=== PATIENT | male | born 1945 | race Caucasian/White ===

== ENCOUNTER 2018-06-14 07:29 | Inpatient (IN) | payer MEDICARE ==
[~2018-06-14] VITALS: Ht 185.4 cm; Wt 86.6 kg
--- NOTE | ~2018-06-14 | OP ---
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 BLOOD LOSS: Minimal. ANESTHESIA: General. DRAINS: None. ROUTE AIDE: Kayla Lee APRN DESCRIPTION OF PROCEDURE: The patient was conveyed to the operating room electively on 06/14/2018. General anesthesia was induced by the anesthesia staff. The abdomen was sterilely prepped and draped. A small skin laura was accomplished on the left upper quadrant. A Veress needle was inserted through the skin laura into the peritoneal cavity. CO2 insufflation was begun. Once a sufficient pneumoperitoneum had been achieved, a 5-mm trocar was inserted through an incision in the epigastrium. Another 5-mm trocar was inserted through an incision in the umbilicus. Another 5-mm trocar was inserted through an incision far laterally in the right upper quadrant. During insertion of the Veress needle and all trocars, there appeared to have been no injury to the bowels, any intraperitoneal or retroperitoneal structures. An abdominal survey was undertaken. The tattooed area was not easily identifiable initially. I incised along the right white line of Toldt. I utilized the laparoscopic EnSeal device for this. I then took down the retroperitoneal attachments to the hepatic flexure and I divided some of the omentum off of the transverse colon. I chose an area for the position of my GelPort. A transverse incision was accomplished in the right upper quadrant. Sharp dissection was carried down through skin and subcutaneous tissues. The external oblique aponeurosis was then opened along the direction of its fibers. The internal oblique muscle was opened along the direction of its fibers and then I divided the transversus abdominis muscle layer. I entered the peritoneal cavity sharply. An Paul retractor was placed. A GelPort was placed on top of the Paul retractor. Utilizing hand-assisted approach, I was able to mobilize more of the hepatic flexure. I then took off the port device. I exteriorized the right colon as well as the transverse colon. I was able to take the greater omentum off of the transverse colon again utilizing the laparoscopic EnSeal device. I identified the area in question. It was marked with a suture. Tattoos were easily identifiable. I chose an area for my distal extent of resection to be at least 2 inches from the mass. I stapled across the colon here with a BENIGNO-75 stapler. I took down the fold of Treves with the laparoscopic EnSeal device. I then chose my proximal extent of the resection to be the very distal ileum. I stapled across the ileum here with a BENIGNO-75 stapler. The interpose mesentery was taken down OPERATIVE REPORT [id number] NIKKI MCKINLEY with the laparoscopic EnSeal device. I ensured that the ureter was protected during this procedure by sweeping it down as well as sweeping down the duodenum. Both of these structures were protected and undamaged during the operative procedure. The larger vessels were ligated with #1 Vicryls. I then completed my mesenteric dissection. I placed the colon on the back table. I then brought the ileum and the colon into apposition side by side. They are kept in place with some 3-0 Vicryls. A small enterotomy and small colotomy were accomplished. Anvils of the BENIGNO-75 stapler were advanced and fired. The resulting enterocolonic defect was closed with a single firing of TA-60 stapler. I then draped some omentum over the anastomosis and sutured it over the anastomosis with some 3-0 Vicryls. I ensured the small bowel was not twisted on its mesentery. I irrigated the right upper quadrant. I examined the liver. I identified no definite evidence of a liver metastasis. I irrigated. There was no bleeding. I closed the internal oblique and transverse abdominis muscles with a running #1 Vicryl. I then closed the external oblique muscle with a running #1 Vicryl. The subcutaneous tissues were closed with interrupted 3-0 Vicryls. The skin in the right upper quadrant was closed with a running intracuticular 3-0 Vicryl. Skin at the umbilicus was closed with interrupted 4-0 Vicryl Rapide sutures. Benzoin and Steri-Strips were applied. The patient was then extubated and conveyed to the post-anesthesia care unit where he was in stable condition. TRANSINT:[id number] Voice Confirmation ID: [id number] DOCUMENT ID: [id number] GUNNER KAUFFMAN MD at 1717 CC: ROSELYN MENENDEZ DO, DOMINIK CHAPA MD, JANEY BOWMAN and [id number] DICTATION DATE: 06/14/18 1621 DUAL RATE DEALER: 06/14/18 1718 ADM IN [facility] [address] [id number]
--- NOTE | ~2018-06-14 | EC ---
PATIENT:NIKKI MCKINLEY DATE OF SERVICE: 06/14/18 SEX: M MEDICAL RECORD: [id number] DATE OF : [birth year] LOCATION:D.[facility] AGE OF PATIENT: 73 ADMISSION DATE: 06/14/18 REFERRING PHYSICIAN: INTERPRETING PHYSICIAN: ERIC RAE MD ECHOCARDIOGRAM REPORT ECHO CHARGES 4 ECHO COMPLETE Date: 06/21 CLINICAL DIAGNOSIS: PE ECHOCARDIOGRAPHIC MEASUREMENTS (adult normal given) AC root (d.<3.7cm) 2.9 cm LV Septum d (<1.2 cm> 1.7 cm Valve Excursion 1.5 cm LV Septum (systole) 2.1 cm Left Atria (s.<4.0cm> 3.3 cm LVPW d(<1.2cm) 1.0 cm RV (d.<2.3cm) 3.9 cm LVPW (sytole) 1.1 cm LV diastole(<5.6CM) 3.9 cm MV E-F(>70mm/sec) cm LV systole 3.0 cm LVOT Diameter 2.3 cm MV exc.(>10mm) cm Est.ejection fraction (50-75%) % DOPPLER: LVIT cm/sec A 90 cm/sec E 56 cm/sec LA cm/sec RVSP 19.4 mmHg LVOT cm/sec AOP1/2T m/s Asc. Ao 108 cm/sec RVOT 71 cm/sec RA cm/sec PA 71 cm/sec AV Gradient Peak 4.6 mmHg AV Mean 2.8 mmHg AV Area cm MV Gradient Peak 4.0 mmHg MV Mean 1.3 mmHg MV Area cm COMMENTS: Digital Advisor: Jonny COCHRAN Farmer Vegetable: Twyla Morales TAPE# PACS Pericardial Effusion N DATE OF SERVICE: 06/22/2018 DATE OF SERVICE: 06/22/2018 PROCEDURE: Echocardiogram. FINDINGS: 1. Left ventricular chamber size is within normal limits. Left ventricular systolic function is normal. Overall ejection fraction is estimated at 55%. 2. Left atrium, right atrium, right ventricle chamber size is within normal ECHOCARDIOGRAM REPORT [id number] NIKKI MCKINLEY limits. 3. Valvular structures have normal structure and motion. 4. Doppler interrogation only reveals trace tricuspid regurgitation. No other valvular insufficiency or stenosis, and pulmonary systolic pressure is normal estimated at 20 mmHg. 5. No evidence of pericardial effusion or left ventricular thrombus. TRANSINT:[id number] Voice Confirmation ID: [id number] DOCUMENT ID: [id number] ERIC RAE MD at 1713 CC: [id number] DICTATION DATE: 06/22/18 1243 GRAPHIC DESIGN PROFESSOR: 06/22/18 1254 DIS IN 06/27/18 [id number] [place] [id number]
--- NOTE | ~2018-06-14 | MORECARE ---
CASE MANAGEMENT DISCHARGE SUMMARY PATIENT: NIKKI MCKINLEY UNIT: [id number] ADM DATE: 06/14/18 AGE: 73 : [birth year] SEX: M ROOM/BED: D.2222 AUTHOR: CASE, LIFESTYLE COORDINATOR PHYSICIAN: REFERRING PHYSICIAN: GUNNER KAUFFMAN MD DATE OF SERVICE: 06/14/18 Discharge Plan Patient Name: NIKKI MCKINLEY Facility: [facility]:[place] : 1945 Planned Disposition: Anticipated Discharge Date: Discharge Date: Expected LOS: Initial Reviewer: [email or web address] Initial Review Date: 06/25/2018 Generated: 06/25/18 11:50 am DCPIA - Discharge Planning Initial Assessment Updated by [email or web address]: Maria Teresa Hernandez on 06/25/18 10:43 am * Is the patient Alert and Oriented? No * How many steps to enterexit or inside your home? * PCP Rashi * Preadmission Environment Home with Family * ADLs Independent * Equipment Grab Bars * List name and contact numbers for known caregivers / representatives who currently or will assist patient after discharge: Mami, daughter, Nilda, , * Community resources currently utilized None * Additional services required to return to the preadmission environment? Yes * Has this patient been hospitalized within the prior 30 days at any hospital? No Patient Name: NIKKI MCKINLEY Page [id number] All edits/amendments must be made on the electronic document DICTATION DATE: 06/25/18 1049 OVERAGE SHORTAGE AND DAMAGE CLERK: 06/25/18 1049 RPT#: [id number] DC DATE: STATUS: ADM IN [facility] [address] [place] [address] END OF REPORT
--- NOTE | ~2018-06-14 | DS ---
PATIENT:NIKKI MCKINLEY :47 MEDICAL RECORD: [id number] DISCHARGE SUMMARY ADMISSION DATE: 06/14/18 DISCHARGE DATE: 06/27/18 PRINCIPAL DIAGNOSES: 1. T3 N0 M0, stage II adenocarcinoma of the colon. 2. Moderately extensive and bilateral pulmonary thromboemboli. 3. Postoperative small bowel obstruction. 4. Acute blood loss anemia. OTHER DIAGNOSES: Include; 1. Bibasilar lower lobe atelectasis with small pleural effusions. 2. Acute malnutrition, requiring parenteral nutrition. 3. Debility. 4. Exploratory laparotomy, small bowel decompression with enterocolonic anastomosis. INITIAL PROCEDURE: Hand-assisted laparoscopic surgery - right hemicolectomy. HOSPITAL COURSE: The patient underwent the above operative procedure. Postoperatively, HE developed a small bowel obstruction due to twist in the bowel that was identified at the time of laparotomy. Prior to his laparotomy, the patient was found to have a small bowel obstruction, which resolved once the twist in the bowel was taken down and a new anastomosis formed. The patient's bowel function returned. His diet was advanced. He is being dismissed home on Eliquis due to the pulmonary thromboemboli, which he should stay on for a year as well as [place] and [place]. I will see him in my office in 2-3 weeks. TRANSINT:[id number] Voice Confirmation ID: [id number] DOCUMENT ID: [id number] GUNNER KAUFFMAN MD at 1023 CC: SUMANTH OCONNOR MD and GUNNER FELDER [id number] DICTATION DATE: 06/27/18 1331 METAL CASKET MAKER: 06/27/18 1716 DIS IN 06/27/18 [id number] [place] [address]
[~2018-06-14 07:29] MED LIST: NORVASC2.5 MG PO
[2018-06-14 08:02] LABS: BASOPHILS 0 % (0-2); EOSINOPHILS 0.3 % (0-7); HEMATOCRIT 40.8 % (42.0-54.0); HEMOGLOBIN 14.3 g/dL (13.5-17.5); IMMATURE GRANULOCYTES 0.3 % (0-5); MCH 30.4 pg (26.0-34.0); MCV 86.6 fL (80.0-100.0); MEAN PLATELET VOLUME 9.6 fL (7.4-10.4); MONOCYTES 11.3 % (2-11); NEUTROPHILS 63.1 % (40-80); PLATELET COUNT 144 10x3/uL (130-400); RBC 4.71 10x6/uL (4.20-6.10); WBC 6.6 10x3/uL (4.8-10.8)
[2018-06-14 08:15] LABS: APTT 30.1 SECONDS (22.8-39.4); INR 1.1 (0.85-1.17); PROTIME 13.8 SECONDS (11.6-15.0)
[2018-06-14 08:20] LABS: ANION GAP 9.4 mmol/L (8-16); CALCIUM 8.8 mg/dL (8.5-10.1); CARBON DIOXIDE 27.4 mmol/L (21.0-32.0); CREATININE - SERUM 1.1 mg/dL (0.6-1.3); POTASSIUM - SERUM 4.8 mmol/L (3.5-5.1)
[2018-06-14 08:56] VITALS: BP 140/80; BMI 25.2
[2018-06-14 15:59] VITALS: BP 135/61
[2018-06-14 19:55] VITALS: BMI 25.2
[2018-06-15 06:52] LABS: BASOPHILS 0 % (0-2); EOSINOPHILS 0 % (0-7); HEMATOCRIT 38.7 % (42.0-54.0); HEMOGLOBIN 12.9 g/dL (13.5-17.5); IMMATURE GRANULOCYTES 0.3 % (0-5); LYMPHOCYTES 9.4 % (15-50); MCH 29.5 pg (26.0-34.0); MCHC 33.3 g/dL (31.0-37.0); MCV 88.4 fL (80.0-100.0); MEAN PLATELET VOLUME 10.3 fL (7.4-10.4); NEUTROPHILS 81.3 % (40-80); PLATELET COUNT 125 10x3/uL (130-400); RBC 4.38 10x6/uL (4.20-6.10); RDW 13.4 % (11.5-14.5)
[2018-06-15 06:58] LABS: WBC 11.1 10x3/uL (4.8-10.8)
[2018-06-15 07:10] LABS: ALBUMIN 3.5 g/dL (3.4-5.0); ALKALINE PHOSPHATASE 48 U/L (46-116); ALT (SGPT) 26 U/L (10-68); BILIRUBIN - TOTAL 0.95 mg/dL (0.2-1.3); CALC OSMOLALITY 279 mosm/kg (275-300); CALCIUM 8.4 mg/dL (8.5-10.1); CARBON DIOXIDE 26.1 mmol/L (21.0-32.0); CHLORIDE - SERUM 105 mmol/L (98-107); GLUCOSE 108 mg/dL (74-106); MAGNESIUM - SERUM 2.2 mg/dL (1.8-2.4); PHOSPHOROUS 3.1 mg/dL (2.5-4.9); PROTEIN - SERUM 6.8 g/dL (6.4-8.2); SODIUM 139 mmol/L (136-145); UREA NITROGEN 14 mg/dL (7-18); eGFR NON AFRICAN AMERICAN 78 mL/min (90-120)
[2018-06-15 12:53] VITALS: BMI 25.2
[2018-06-16 08:57] VITALS: BP 126/75
[2018-06-16 13:15] VITALS: BP 152/70
[2018-06-16 15:04] VITALS: BMI 25.2
[2018-06-16 16:56] VITALS: BP 163/82
[2018-06-16 20:04] VITALS: BP 159/71
[2018-06-17 01:23] VITALS: BP 152/63
[2018-06-17 04:10] VITALS: BP 149/68
[2018-06-17 09:31] VITALS: BP 168/77
[2018-06-17 16:44] VITALS: BP 153/69
[2018-06-17 20:24] VITALS: BP 144/76
[2018-06-17 23:41] VITALS: BP 154/72
[2018-06-18 04:04] VITALS: BP 151/72
[2018-06-18 09:01] VITALS: BP 177/87
[2018-06-18 16:09] VITALS: BP 194/88
[2018-06-18 19:48] VITALS: BP 170/75
[2018-06-19 01:16] VITALS: BP 167/68
[2018-06-19 04:09] VITALS: BP 177/96
[2018-06-19 09:19] LABS: BASOPHILS 0.1 % (0-2); EOSINOPHILS 0.9 % (0-7); HEMATOCRIT 36.9 % (42.0-54.0); HEMOGLOBIN 12.7 g/dL (13.5-17.5); IMMATURE GRANULOCYTES 0.7 % (0-5); LYMPHOCYTES 10.2 % (15-50); MCH 29.8 pg (26.0-34.0); MCHC 34.4 g/dL (31.0-37.0); MCV 86.6 fL (80.0-100.0); MEAN PLATELET VOLUME 9.3 fL (7.4-10.4); NEUTROPHILS 75.1 % (40-80); PLATELET COUNT 147 10x3/uL (130-400); RBC 4.26 10x6/uL (4.20-6.10); RDW 13.2 % (11.5-14.5); WBC 8.4 10x3/uL (4.8-10.8)
[2018-06-19 09:32] LABS: ALBUMIN 2.8 g/dL (3.4-5.0); ALKALINE PHOSPHATASE 63 U/L (46-116); ALT (SGPT) 39 U/L (10-68); BILIRUBIN - TOTAL 1.21 mg/dL (0.2-1.3); CALC OSMOLALITY 271 mosm/kg (275-300); CALCIUM 8.3 mg/dL (8.5-10.1); CHLORIDE - SERUM 102 mmol/L (98-107); CREATININE - SERUM 0.8 mg/dL (0.6-1.3); GLUCOSE 112 mg/dL (74-106); POTASSIUM - SERUM 3.7 mmol/L (3.5-5.1); PROTEIN - SERUM 6.3 g/dL (6.4-8.2); SODIUM 135 mmol/L (136-145); UREA NITROGEN 14 mg/dL (7-18); eGFR NON AFRICAN AMERICAN > 90 mL/min (90-120)
[2018-06-19 11:53] VITALS: BP 148/73
[2018-06-19 16:25] VITALS: BP 109/77
[2018-06-19 20:22] VITALS: BP 155/69
[2018-06-20 04:38] VITALS: BP 171/80
[2018-06-20 09:37] VITALS: BP 133/77
[2018-06-20 17:37] VITALS: BP 154/72
[2018-06-20 19:33] VITALS: BP 123/66
[2018-06-20 23:43] VITALS: BP 112/70
[2018-06-21] VITALS (8 sets, daily range): BP systolic 117–156; BP diastolic 53–70; Ht 185.4 cm; Wt 86.6 kg
[2018-06-21 19:49] LABS: BASOPHILS 0.3 % (0-2); EOSINOPHILS 0.4 % (0-7); HEMATOCRIT 43.5 % (42.0-54.0); IMMATURE GRANULOCYTES 1.2 % (0-5); LYMPHOCYTES 10.3 % (15-50); MCH 29.9 pg (26.0-34.0); MCHC 34.5 g/dL (31.0-37.0); MCV 86.7 fL (80.0-100.0); MEAN PLATELET VOLUME 10.5 fL (7.4-10.4); MONOCYTES 10.2 % (2-11); NEUTROPHILS 77.6 % (40-80); PLATELET COUNT 175 10x3/uL (130-400); RBC 5.02 10x6/uL (4.20-6.10); RDW 13.4 % (11.5-14.5); WBC 10.3 10x3/uL (4.8-10.8)
[2018-06-22] VITALS (21 sets, daily range): BP systolic 110–132; BP diastolic 47–68
[2018-06-22 05:04] LABS: BASOPHILS 0.1 % (0-2); EOSINOPHILS 0 % (0-7); HEMATOCRIT 38.4 % (42.0-54.0); HEMOGLOBIN 13.1 g/dL (13.5-17.5); MCHC 34.1 g/dL (31.0-37.0); MCV 87.9 fL (80.0-100.0); MEAN PLATELET VOLUME 9.7 fL (7.4-10.4); MONOCYTES 7.8 % (2-11); NEUTROPHILS 83.1 % (40-80); PLATELET COUNT 201 10x3/uL (130-400); RBC 4.37 10x6/uL (4.20-6.10); RDW 13.4 % (11.5-14.5); WBC 10.9 10x3/uL (4.8-10.8)
[2018-06-22 05:52] LABS: ALBUMIN 2.2 g/dL (3.4-5.0); ALKALINE PHOSPHATASE 53 U/L (46-116); ALT (SGPT) 81 U/L (10-68); BILIRUBIN - TOTAL 0.51 mg/dL (0.2-1.3); CALC OSMOLALITY 274 mosm/kg (275-300); CALCIUM 7.7 mg/dL (8.5-10.1); CARBON DIOXIDE 30.3 mmol/L (21.0-32.0); CHLORIDE - SERUM 103 mmol/L (98-107); GLUCOSE 150 mg/dL (74-106); MAGNESIUM - SERUM 2.2 mg/dL (1.8-2.4); PHOSPHOROUS 3.5 mg/dL (2.5-4.9); POTASSIUM - SERUM 4.9 mmol/L (3.5-5.1); PROTEIN - SERUM 5.5 g/dL (6.4-8.2); SODIUM 135 mmol/L (136-145); UREA NITROGEN 18 mg/dL (7-18); eGFR NON AFRICAN AMERICAN 78 mL/min (90-120)
[2018-06-22 13:05] LABS: BASOPHILS 0.1 % (0-2); EOSINOPHILS 0.2 % (0-7); HEMATOCRIT 36.6 % (42.0-54.0); HEMOGLOBIN 12.3 g/dL (13.5-17.5); LYMPHOCYTES 9.7 % (15-50); MCH 29.6 pg (26.0-34.0); MCHC 33.6 g/dL (31.0-37.0); MEAN PLATELET VOLUME 9.9 fL (7.4-10.4); MONOCYTES 10.5 % (2-11); NEUTROPHILS 78.5 % (40-80); PLATELET COUNT 200 10x3/uL (130-400); RBC 4.16 10x6/uL (4.20-6.10); RDW 13.6 % (11.5-14.5); WBC 10.9 10x3/uL (4.8-10.8)
[2018-06-23] VITALS (9 sets, daily range): BP systolic 125–143; BP diastolic 55–71
[2018-06-23 04:31] LABS: BASOPHILS 0.2 % (0-2); EOSINOPHILS 2.5 % (0-7); HEMATOCRIT 34.2 % (42.0-54.0); HEMOGLOBIN 11.5 g/dL (13.5-17.5); MCH 29.6 pg (26.0-34.0); MCHC 33.6 g/dL (31.0-37.0); MCV 87.9 fL (80.0-100.0); MEAN PLATELET VOLUME 9.6 fL (7.4-10.4); MONOCYTES 11.9 % (2-11); NEUTROPHILS 73.4 % (40-80); PLATELET COUNT 200 10x3/uL (130-400); RBC 3.89 10x6/uL (4.20-6.10); RDW 13.4 % (11.5-14.5); WBC 10.6 10x3/uL (4.8-10.8)
[2018-06-23 05:31] LABS: ALBUMIN 2.1 g/dL (3.4-5.0); ALKALINE PHOSPHATASE 54 U/L (46-116); ALT (SGPT) 59 U/L (10-68); BILIRUBIN - TOTAL 0.54 mg/dL (0.2-1.3); CALC OSMOLALITY 272 mosm/kg (275-300); CALCIUM 7.4 mg/dL (8.5-10.1); CARBON DIOXIDE 29.8 mmol/L (21.0-32.0); CHLORIDE - SERUM 103 mmol/L (98-107); CREATININE - SERUM 0.7 mg/dL (0.6-1.3); GLUCOSE 105 mg/dL (74-106); MAGNESIUM - SERUM 2.2 mg/dL (1.8-2.4); PHOSPHOROUS 2.5 mg/dL (2.5-4.9); POTASSIUM - SERUM 4.3 mmol/L (3.5-5.1); SODIUM 135 mmol/L (136-145); UREA NITROGEN 20 mg/dL (7-18); eGFR NON AFRICAN AMERICAN > 90 mL/min (90-120)
[2018-06-24 04:23] VITALS: BP 134/54
[2018-06-24 04:32] LABS: BASOPHILS 0.1 % (0-2); EOSINOPHILS 2.4 % (0-7); HEMATOCRIT 33.9 % (42.0-54.0); HEMOGLOBIN 11.5 g/dL (13.5-17.5); IMMATURE GRANULOCYTES 1.5 % (0-5); LYMPHOCYTES 11.1 % (15-50); MCH 29.6 pg (26.0-34.0); MCHC 33.9 g/dL (31.0-37.0); MCV 87.4 fL (80.0-100.0); MEAN PLATELET VOLUME 9.8 fL (7.4-10.4); MONOCYTES 12.6 % (2-11); NEUTROPHILS 72.3 % (40-80); PLATELET COUNT 218 10x3/uL (130-400); RBC 3.88 10x6/uL (4.20-6.10); RDW 13.2 % (11.5-14.5); WBC 10.3 10x3/uL (4.8-10.8)
[2018-06-24 04:51] LABS: ALBUMIN 2.1 g/dL (3.4-5.0); ALKALINE PHOSPHATASE 56 U/L (46-116); ALT (SGPT) 54 U/L (10-68); BILIRUBIN - TOTAL 0.53 mg/dL (0.2-1.3); CALC OSMOLALITY 270 mosm/kg (275-300); CALCIUM 7.7 mg/dL (8.5-10.1); CARBON DIOXIDE 28.9 mmol/L (21.0-32.0); CHLORIDE - SERUM 102 mmol/L (98-107); GLUCOSE 102 mg/dL (74-106); MAGNESIUM - SERUM 2.2 mg/dL (1.8-2.4); PHOSPHOROUS 2.9 mg/dL (2.5-4.9); POTASSIUM - SERUM 4.3 mmol/L (3.5-5.1); PROTEIN - SERUM 5.5 g/dL (6.4-8.2); SODIUM 135 mmol/L (136-145); UREA NITROGEN 16 mg/dL (7-18)
[2018-06-24 04:56] LABS: CREATININE - SERUM 0.9 mg/dL (0.6-1.3); eGFR NON AFRICAN AMERICAN 88 mL/min (90-120)
[2018-06-24 07:58] VITALS: BP 121/65
[2018-06-24 16:20] VITALS: BP 120/75
[2018-06-24 20:52] VITALS: BP 143/64
[2018-06-25 00:30] VITALS: BP 158/70
[2018-06-25 04:15] LABS: BASOPHILS 0.3 % (0-2); EOSINOPHILS 2.7 % (0-7); HEMATOCRIT 37.8 % (42.0-54.0); HEMOGLOBIN 12.9 g/dL (13.5-17.5); IMMATURE GRANULOCYTES 2.1 % (0-5); LYMPHOCYTES 13.4 % (15-50); MCH 29.5 pg (26.0-34.0); MCHC 34.1 g/dL (31.0-37.0); MCV 86.3 fL (80.0-100.0); MEAN PLATELET VOLUME 9.7 fL (7.4-10.4); MONOCYTES 10.7 % (2-11); NEUTROPHILS 70.8 % (40-80); PLATELET COUNT 248 10x3/uL (130-400); RBC 4.38 10x6/uL (4.20-6.10); RDW 12.9 % (11.5-14.5); WBC 11.3 10x3/uL (4.8-10.8)
[2018-06-25 04:31] LABS: ALBUMIN 2.5 g/dL (3.4-5.0); ALKALINE PHOSPHATASE 79 U/L (46-116); ALT (SGPT) 59 U/L (10-68); BILIRUBIN - TOTAL 0.51 mg/dL (0.2-1.3); CALC OSMOLALITY 274 mosm/kg (275-300); CALCIUM 8.4 mg/dL (8.5-10.1); CARBON DIOXIDE 31.1 mmol/L (21.0-32.0); CHLORIDE - SERUM 99 mmol/L (98-107); GLUCOSE 120 mg/dL (74-106); MAGNESIUM - SERUM 2.3 mg/dL (1.8-2.4); PHOSPHOROUS 3.4 mg/dL (2.5-4.9); PROTEIN - SERUM 6.4 g/dL (6.4-8.2); SODIUM 136 mmol/L (136-145); UREA NITROGEN 18 mg/dL (7-18); eGFR NON AFRICAN AMERICAN 78 mL/min (90-120)
[2018-06-25 06:17] VITALS: BP 133/91
[2018-06-25 07:43] VITALS: BP 126/67
[2018-06-25 12:23] VITALS: BP 147/75
[2018-06-25 19:50] VITALS: BP 125/62
[2018-06-26] VITALS (9 sets, daily range): BP systolic 105–134; BP diastolic 41–61
[2018-06-26 05:38] LABS: BASOPHILS 0.2 % (0-2); HEMATOCRIT 31.8 % (42.0-54.0); HEMOGLOBIN 10.7 g/dL (13.5-17.5); IMMATURE GRANULOCYTES 2.1 % (0-5); LYMPHOCYTES 10.5 % (15-50); MCH 29.2 pg (26.0-34.0); MCHC 33.6 g/dL (31.0-37.0); MCV 86.9 fL (80.0-100.0); MEAN PLATELET VOLUME 9.8 fL (7.4-10.4); NEUTROPHILS 76.2 % (40-80); PLATELET COUNT 244 10x3/uL (130-400); RBC 3.66 10x6/uL (4.20-6.10); RDW 13.2 % (11.5-14.5); WBC 13.1 10x3/uL (4.8-10.8)
[2018-06-26 06:33] LABS: ALBUMIN 2.2 g/dL (3.4-5.0); ALKALINE PHOSPHATASE 68 U/L (46-116); ALT (SGPT) 65 U/L (10-68); BILIRUBIN - TOTAL 0.28 mg/dL (0.2-1.3); CALC OSMOLALITY 279 mosm/kg (275-300); CHLORIDE - SERUM 103 mmol/L (98-107); CREATININE - SERUM 0.8 mg/dL (0.6-1.3); MAGNESIUM - SERUM 2.3 mg/dL (1.8-2.4); PHOSPHOROUS 3.7 mg/dL (2.5-4.9); POTASSIUM - SERUM 4.1 mmol/L (3.5-5.1); PROTEIN - SERUM 5.4 g/dL (6.4-8.2); SODIUM 135 mmol/L (136-145); UREA NITROGEN 21 mg/dL (7-18); eGFR NON AFRICAN AMERICAN > 90 mL/min (90-120)
[2018-06-26 06:38] LABS: GLUCOSE 229 mg/dL (74-106)
[2018-06-27 04:02] VITALS: BP 115/61
[2018-06-27 07:45] VITALS: BP 123/58
[2018-06-27 12:07] VITALS: BP 136/62
[2018-06-27] MEDS ORDERED: HYDROCODON-ACE1 EAC7 PO (14:12)
[2018-06-27] MEDS ORDERED: ELIQUIS5 MG PO (14:12)
[2018-06-27] MEDS ORDERED: COLACE100 MG PO (14:13)
== END 2018-06-27 17:40 | disposition home health service (06) | DRG 329 ==
LOC: D.ICU 07:29 → D.MS 07:29 → D.SDCHOLD 07:29 → D.MS 15:52 → D.ICU 06-21 18:06 → D.MS 06-23 14:08
PROVIDERS: Anesthesiology; Family Medicine; Surgery
PROC: 0DTF0ZZ Resection of Right Large Intestine, Open Approach (ICD-10-PCS; principal; 2018-06-14 09:30)
PROC: 0DNW0ZZ Release Peritoneum, Open Approach (ICD-10-PCS; 2018-06-21 12:30)
DX: C18.4 Malignant neoplasm of transverse colon (principal); I26.99 Other pulmonary embolism without acute cor pulmonale; T81.718A Complication of other artery following a procedure, not elsewhere classified, initial encounter; D62 Acute posthemorrhagic anemia; K56.609 Unspecified intestinal obstruction, unspecified as to partial versus complete obstruction; E46 Unspecified protein-calorie malnutrition; I10 Essential (primary) hypertension; E88.09 Other disorders of plasma-protein metabolism, not elsewhere classified; K59.00 Constipation, unspecified; L50.9 Urticaria, unspecified

== ENCOUNTER → 2018-08-24 10:20 | Outpatient (CLI) | payer MEDICARE ==
[2018-06-21 07:08] VITALS: BMI 25.2
[~2018-08-24 10:20] MED LIST changes: +COLACE100 MG PO; +ELIQUIS5 MG PO; +HYDROCODON-ACE1 EAC7 PO
== END | disposition home or self-care (01) ==
LOC: D.RT 10:20
DX: Z86.711 Personal history of pulmonary embolism (principal)

== ENCOUNTER → 2019-06-13 12:23 | Outpatient (CLI) | payer MEDICARE ==
[2018-06-21 07:08] VITALS: BMI 25.2
== END | disposition home or self-care (01) ==
LOC: D.CT 12:23
PROVIDERS: ATTEND Internal Medicine Gastroenterology
DX: R10.9 Unspecified abdominal pain (principal)

== ENCOUNTER → 2020-09-12 11:03 | Outpatient (CLI) | payer MEDICARE ==
[2018-06-21 07:08] VITALS: BMI 25.2
== END | disposition home or self-care (01) ==
LOC: D.MRI 11:03
PROVIDERS: ATTEND Family Medicine
DX: M54.16 Radiculopathy, lumbar region (principal)

== ENCOUNTER 2021-05-16 06:45 | Observation (INO) | payer MEDICARE ==
[2021-05-15 09:54] LABS: BASOPHILS 0.2 % (0-2); EOSINOPHILS 0.8 % (0-7); HEMATOCRIT 38.9 % (42.0-54.0); LYMPHOCYTES 25.8 % (15-50); MCH 29.5 pg (26.0-34.0); MCHC 33.4 g/dL (31.0-37.0); MCV 88.3 fL (80.0-100.0); MONOCYTES 10.5 % (2-11); NEUTROPHILS 62.7 % (40-80); PLATELET COUNT 158 10x3/uL (130-400); RDW 14.4 % (11.5-14.5)
[2021-05-15 10:04] LABS: ANION GAP 10.3 mmol/L (8-16); CALCIUM 9.2 mg/dL (8.5-10.1); CARBON DIOXIDE 30.1 mmol/L (21.0-32.0); CREATININE - SERUM 1.1 mg/dL (0.6-1.3); POTASSIUM - SERUM 4.4 mmol/L (3.5-5.1)
[2021-05-15 10:24] LABS: SARS-CoV-2 ANTIGEN NEGATIVE- SARS-COV-2 (NEGATIVE)
[~2021-05-16] VITALS: Ht 182.9 cm; Wt 88.2 kg
[~2021-05-16 06:45] MED LIST changes: +B12 PO; +ESTER-C PO; +EXCEDRIN PO; +FISH OIL 1,0001 CA1 PO; +HYDROCODON-ACE1 EA10 PO; +LUTEIN PO; +MAGNESIUM PO; +MEDROL DOSE PACK4 MG PO; +MVI PO; +NAPROXEN SODIU220 M1 PO; +POTASSIUM99 M1 PO; +STOOL SOFTENER100 M1 PO; +VIT C PO; +[UNRECOGNIZED DRUG - OTHER] PO
[2021-05-16 07:28] VITALS: BP 150/76; BMI 26.5
[2021-05-16] MEDS ORDERED: MEDROL DOSE PACK4 MG PO (10:55)
[2021-05-16] MEDS ORDERED: HYDROCODON-ACE1 EA10 PO (10:55)
--- NOTE | 2021-05-16 14:54 | NUR ---
1140 TO ROOM AWAKE. NURO INTACT. BILATERAL LOWER EXTEMITY STRENTH AND SENSATION EQUAL. DENIES PAIN. 1245 TOLERATING LIQ. SAT ON SIDE OF BED. LARGE AMT OF DRAINAGE NOTED AND DR SILVA ON UNIT. IN ROOM. ORDERED TO REMOVE DRESSING AND APPLY 4X4 AND A KERLEX ROLL. WALKED TO BATHROOM WITH WALKER. STATED HE FELT BETTER AND ABLE TO MOVE BETTER. BACK TO BED AND PRESSURE DRESSING APPLIED. 1445 PT ASSISTED TO BATHROOM UNABLE TO URINATE. DR SILVA CAME IN TO CHECK ON PT.
--- NOTE | 2021-05-16 16:08 | NUR ---
1530 BLADDER SCAN DONE 886ML NOTED DR SILVA CALLED. 1545 ORDERS GIVEN AND NOTED AND IN AND OUT CATH DONE AND 775 CLEAR YELLOW URINE. PT TOLERATED WELL. 1600 PRESSURE REMOVED AND 4X4S AND LARGE KERLEX ROLL WITH MODERATE AMT OF BLOOD AND DRAINING FROM TOP OF INCISON. DR SILVA PAGED.
--- NOTE | 2021-05-16 16:53 | NUR ---
1655 REPORT GIVEN TO OWEN. PT WILL TRANSFER TO [phone]
--- NOTE | 2021-05-16 18:08 | NUR ---
PT ARRIVED TO FLOOR VIA WHEELCHAIR ASSISTED BY HOSPITAL STAFF TO ROOM 2210, SITTING UP TO SIDE OF BED EATING DINNER
[2021-05-16 20:00] VITALS: BP 132/61
[2021-05-17] VITALS: BP 141/51
[2021-05-17 04:00] VITALS: BP 146/63
[2021-05-17 04:16] VITALS: Ht 182.9 cm; Wt 88.2 kg
[2021-05-17 09:04] VITALS: BP 139/58
--- NOTE | 2021-05-17 11:02 | NUR ---
DC HOME AT THIS TIME WITH ALL PERSONAL BELONGING AND VOICES UNDERSTANDING OF DC ORDERS WITH FAMILY MEMBER AT BEDSIDE AND SHE VOICED UNDERSTANDING WELL.
--- NOTE | 2021-05-19 18:20 | MORECARE ---
CASE MANAGEMENT DISCHARGE SUMMARY PATIENT: RHODA MCKINLEY UNIT: [id number] ADM DATE: 05/16/21 AGE: 76 : 47 SEX: M ROOM/BED: D.2210 AUTHOR: MARILYN,DOC PHYSICIAN: REFERRING PHYSICIAN: MONY SILVA MD DATE OF SERVICE: 05/19/21 Case Management Discharge Planning Summary DCP REVIEW SUMMARY ANTICIPATED D/C DATE: EXPECTED LOS : CASE STATUS: DCP Complete INITIAL REVIEW: 05/16/2021 INITIAL REVIEWER: Irene James FINAL DISCHARGE DISPOSITION: : FINAL REVIEWER: FINAL REVIEW DATE: DCP [employer] Questions & Answers QUESTION: ANSWER : PATIENT: RHODA MCKINLEY ENCOUNTER: [id number] MEDICAL RECORD#: [id number] ADMISSION DATE: 05/16/2021 DISCHARGE DATE: 05/17/2021 ATTENDING MD: MONY VALERO : AGE: 76 MARITAL STATUS: M DC PLAN ID: [id number] FACILITY: [facility] PRINTED ON: 05/19/21 18:20 CT All edits/amendments must be made on the electronic document DICTATION DATE: 05/19/211819 PRODUCT INSPECTION COORDINATOR: DM 05/19/211819 RPT#: [id number] DC DATE:05/17/21 STATUS: DIS IN [facility] [address] [place] [address] END OF REPORT
--- NOTE | 2021-05-29 07:36 | OP ---
PATIENT NAME: ROHDA MCKINLEY MEDICAL RECORD: [id number] :47 LOCATION:D.MS [facility]2210 ADMISSION DATE:05/16/21 SURGEON: MONY SILVA MD DATE OF OPERATION: 05/16/2021 PREOPERATIVE DIAGNOSIS: Lumbar spinal stenosis at L2-3, L3-4, and L4-5. POSTOPERATIVE DIAGNOSIS: Lumbar spinal stenosis at L2-3, L3-4, and L4-5. PROCEDURE: Lumbar laminectomy, medial facetectomy, and foraminotomies at L2-L3, L3-L4, and L4-L5 on the right. SURGEON: Mony Silva MD DESCRIPTION OF PROCEDURE: After induction of general endotracheal anesthesia, the patient was rolled prone on Gibson frame. Lumbar spine was prepped and draped in usual sterile fashion. Fluoroscopic x-ray and a spinal needle localized the L2-L3 interspace on the right side. After infiltration of 1:100,000 epinephrine 1% lidocaine, a skin incision was carried out from the spinous process of L2 to L5. Next, the fascia was incised. The spinous processes and lamina of L2, L3, L4, and L5 were exposed on the right side. Ruddy's retractor was used for retraction. Following this, a [place] drill and microscope were used to perform a laminectomy at L2, L3, and L4 on the right side. Hypertrophied ligamentum flavum was removed at each level with Cloward rongeurs. Foraminotomies were carried out at L2-L3, L3-L4, and L4-L5 on the right side, each level was confirmed with fluoroscopic x-ray and a [place] elevator. Meticulous hemostasis was maintained throughout the wound. The wound was irrigated with copious amounts of Ancef irrigant solution. The fascia was closed with 2-0 Vicryl suture interrupted. The subdermal layer was closed with 3-0 Vicryl suture. The skin was closed with xi. A sterile dressing was applied to the wound. The patient was awakened in good condition and taken to recovery. All counts reported as correct. Estimated blood loss was minimal. TRANSINT:[id number] Voice Confirmation ID: [id number] DOCUMENT ID: [id number] MONY SILVA MD at 0736 CC: [id number] DICTATION DATE: 05/28/212150 INCLINED RAILWAY OPERATOR: 05/29/21 0232 DIS IN 05/17/21 [facility] [address] [place] [address]
== END 2021-05-17 11:09 | disposition home or self-care (01) ==
LOC: D.OPS 06:45 → D.MS 17:47 → OBSVTIME 17:48 → D.MS 17:48 → D.OPS 17:48 → D.MS 05-17 11:09
PROVIDERS: Anesthesiology; ADMIT Neurological Surgery; ATTEND Neurological Surgery
DX: M48.061 Spinal stenosis, lumbar region without neurogenic claudication (principal); M54.16 Radiculopathy, lumbar region